=== PATIENT | female | born 1930 | race Caucasian/White ===

== ENCOUNTER 2016-11-14 15:45 | Emergency (ER) | payer MEDICARE, MEDICAID ==
[~2016-11-14 15:45] MED LIST: ACETAMINOPHEN PO; CIPR500T94 PO; LISI-334 PO; METO10TA81 PO; OMEP20CA9 PO; SOLI10TA2 PO; SUCR1TAB35 PO; TRAM1TAB4 PO; TRAMADOL HCL PO
[2016-11-14] MEDS ORDERED: IV NORMAL SALINE 1,000ML 1,000 ML IV ONE (16:00)
[2016-11-14 16:21] LABS: HEMATOCRIT 42.2 % (36.0-47.0); HEMOGLOBIN 13.8 g/dL (12.0-15.5); RED BLOOD COUNT 4.93 x10^6/uL (3.50-5.40); RED CELL DISTRIBUTION WIDTH 13.7 % (11.5-14.5)
[2016-11-14 16:30] LABS: CALCIUM 8.8 mg/dL (8.5-10.1); CREATININE 0.7 mg/dL (0.6-1.0); GFR 79.7; POTASSIUM 4.2 mmol/L (3.5-5.1)
--- NOTE | 2016-11-14 18:12 | PHYS DOC ---
Past History Past Medical History: Hypertension, Other Past Surgical History: , Hysterectomy Alcohol Use: None Drug Use: None Adult General Chief Complaint Chief Complaint: MECHANICAL FALL HPI HPI Patient is a 86 year old F who presents with a fall. She fell about 3 hours prior to arrival while working in her garden. The fall was from standing height onto grass landing on her left side. The majority of her pain is constant dull and located in her left ribs as well as her left hip. Her pain is exacerbated by movement and palpation and alleviated by rest. She does feel that she can breath well. She was able to walk with some assistance. She has a walker at home however usually she is able to get around without it. Review of Systems Review of Systems Constitutional: Denies fever or chills [] Eyes: Denies change in visual acuity, redness, or eye pain [] HENT: Denies nasal congestion or sore throat [] Respiratory: Denies cough or shortness of breath [] Cardiovascular: No additional information not addressed in HPI [] GI: Denies abdominal pain, nausea, vomiting, bloody stools or diarrhea [] : Denies dysuria or hematuria [] Musculoskeletal: Negative except history of present illness Integument: Denies rash or skin lesions [] Neurologic: Denies headache, focal weakness or sensory changes [] Endocrine: Denies polyuria or polydipsia [] Family History Family History Noncontributory Current Medications Current Medications Current Medications Medications (Trade) Dose Ordered Sig/Stas Start Time Stop Time Status Last Admin Dose Admin Sodium Chloride 1,000 ml @ 1,000 mls/hr 1X ONCE 11/14/16 16:00 11/14/16 16:59 DC 11/14/16 16:30 1,000 MLS/HR Allergies Allergies Allergies Coded Allergies Type Severity Reaction Last Updated Verified No Known Drug Allergies 07/01/14 No Physical Exam Physical Exam Constitutional: Well developed, well nourished, no acute distress, non-toxic appearance. [] HENT: Normocephalic, atraumatic, bilateral external ears normal, oropharynx moist, no oral exudates, Eyes: PERRLA, EOMI, conjunctiva normal, no discharge. [] Neck: Normal range of motion, no tenderness, supple, no stridor. [] Cardiovascular:Heart rate regular rhythm, Lungs & Thorax: Bilateral breath sounds clear to auscultation left lateral rib pain to palpation Abdomen: Bowel sounds normal, soft, no tenderness, no masses, no pulsatile masses. [] Skin: Warm, dry, no erythema, no rash. [] Back: No tenderness, no CVA tenderness. [] Extremities: no cyanosis, no clubbing, ROM intact, no edema. Mild tenderness to palpation on the lateral left hip Neurologic: Alert and oriented X 3, normal motor function, normal sensory function, no focal deficits noted. [] Psychologic: Affect normal, judgement normal, mood normal. [] Current Patient Data Vital Signs Vital Signs Date Time Temp Pulse Resp B/P (MAP) Pulse Ox O2 Delivery O2 Flow Rate FiO2 11/14/16 15:45 98.3 103 16 97 Room Air Lab Results Laboratory Tests Test 11/14/16 16:00 White Blood Count 12.0 x10^3/uL (4.0-11.0) H Red Blood Count 4.93 x10^6/uL (3.50-5.40) Hemoglobin 13.8 g/dL (12.0-15.5) Hematocrit 42.2 % (36.0-47.0) Mean Corpuscular Volume 86 fL (79-100) Mean Corpuscular Hemoglobin 28 pg (25-35) Mean Corpuscular Hemoglobin Concent 33 g/dL (31-37) Red Cell Distribution Width 13.7 % (11.5-14.5) Platelet Count 269 x10^3/uL (140-400) Sodium Level 136 mmol/L (136-145) Potassium Level 4.2 mmol/L (3.5-5.1) Chloride Level 101 mmol/L (98-107) Carbon Dioxide Level 29 mmol/L (21-32) Anion Gap 6 (6-14) Blood Urea Nitrogen 14 mg/dL (7-20) Creatinine 0.7 mg/dL (0.6-1.0) Estimated GFR (Cockcroft-Gault) 79.7 Glucose Level 109 mg/dL (70-99) H Calcium Level 8.8 mg/dL (8.5-10.1) Creatine Kinase 50 U/L (26-192) EKG EKG [] Radiology/Procedures Radiology/Procedures Radiology normal Course & Med Decision Making Course & Med Decision Making Pertinent Labs and Imaging studies reviewed. (See chart for details) [] Dragon Disclaimer Dragon Disclaimer This chart was dictated in whole or in part using Voice Recognition software in a busy, high-work load, and often noisy Emergency Department environment. It may contain unintended and wholly unrecognized errors or omissions. Departure Departure: Impression: Primary Impression: Rib contusion Disposition: HOME, SELF-CARE Condition: STABLE Referrals: MONCHO FOSTER MD (PCP) Patient Instructions: Rib Contusion Additional Instructions: Reji was seen in the ED after a fall. No emergency medical condition was found on history or physical exam. She did have normal labs and imaging. She was found to have a bruised rib and was encouraged to have regular deep breathing. She was given an incentive spirometer. She was advised to use lidocaine patches for pain and was given a prescription for muscle relaxers. Home health was set up for physical therapy and occupational therapy. She was advised to follow-up with her primary care doctor in the next 3-5 days Problem Qualifiers Primary Impression: Rib contusion Encounter type: initial encounter Laterality: left Qualified Codes: S20.212A - Contusion of left front wall of thorax, initial encounter MONCHO BARKSDALE MD Nov 14, 2016 18:12
[2016-11-14 18:15] VITALS: BP 157/89
--- NOTE | 2016-11-15 12:30 | RAD ---
Left rib series 11/14/2016 Clinical history: Fall with left rib pain. Two AP and oblique digital radiographs of the left ribs were obtained. The left lung is clear. No left-sided pneumothorax is seen. There is diffuse osteopenia the visualized bony structures. No left-sided rib fracture is seen. Impression: No left-sided rib fracture is seen.
== END 2016-11-14 18:30 | disposition home or self-care (01) ==
LOC: ER 15:45
DX: S20.212A Contusion of left front wall of thorax, initial encounter (principal); M25.552 Pain in left hip; I10 Essential (primary) hypertension; W19.XXXA Unspecified fall, initial encounter; Y93.89 Activity, other specified; Y99.8 Other external cause status; Y92.89 Other specified places as the place of occurrence of the external cause
CPT/HCPCS: 36415; 71100; 80048; 82550; 85027; 96360; 99285-25; J7030

== ENCOUNTER → 2017-04-12 | Outpatient (CLI) | payer MEDICARE, MEDICAID ==
--- NOTE | 2017-04-12 13:36 | RAD ---
Indication: Microscopic hematuria Technique: CT abdomen and pelvis without IV contrast with multiplanar reformats. Comparison: None Findings: Limited evaluation of solid abdominal organs due to lack of IV contrast. Heart is normal in size. No pericardial or pleural effusion. Clear lung bases. Noncontrast appearance of the liver, spleen, pancreas, adrenals is within normal limits. Gallstone is noted. No pericholecystic fluid. 2.0 cm low attenuating lesion in the right kidney demonstrating Hounsfield units compatible with simple cyst. 1.3 cm similar appearing cyst is seen in the left kidney. No nephrolithiasis. Multiple dilated and lobulated low attenuating lesions in the left renal pelvis. No perinephric fluid collection. No retroperitoneal or pelvic adenopathy. No bowel obstruction. Sigmoid diverticulosis. Small sliding hiatal hernia. Uterus likely surgically absent. No solid adnexal lesions. Bladder show no radiopaque stones. Subacute fracture of the inferior left pubic ramus with evidence of callus formation. No suspicious bony lesion. Multilevel degenerative disc disease in the lumbar spine with facet arthropathy. Diffuse atherosclerotic disease of the abdominal aorta. Impression: Limited study due to lack of IV contrast. 1. No nephrolithiasis. Multiple dilated saclike structures in the left renal pelvis most likely parapelvic cysts, less likely hydronephrosis. Nonemergent CT urogram or MRI may be performed for additional evaluation. 2. Sigmoid diverticulosis without diverticulitis. 3. Cholelithiasis without imaging evidence of acute cholecystitis. PQRS Compliance Statement: One or more of the following individualized dose reduction techniques were utilized for this examination: 1. Automated exposure control 2. Adjustment of the mA and/or kV according to patient size 3. Use of iterative reconstruction technique
== END | disposition home or self-care (01) ==
LOC: CT 12:40
PROVIDERS: ATTEND Nurse Practitioner Adult Health
DX: K57.30 Diverticulosis of large intestine without perforation or abscess without bleeding (principal); K80.20 Calculus of gallbladder without cholecystitis without obstruction; K44.9 Diaphragmatic hernia without obstruction or gangrene
CPT/HCPCS: 74176

== ENCOUNTER → 2017-05-21 | Outpatient (CLI) | payer MEDICARE, MEDICAID ==
[~2017-05-21] MED LIST changes: +IOHEXOL 300 MG/ML 75 ML VIAL. IV ONE
[2017-05-21 12:59] LABS: CREATININE 0.7 mg/dL (0.6-1.0); GFR 79.5
--- NOTE | 2017-05-21 15:47 | RAD ---
CT abdomen and pelvis without and with contrast 05/21/2017 Clinical indication: Dilated left renal pelvic cystic structures. Comparison: CT abdomen and pelvis 04/12/2017 Technique: Multiple CT images of the abdomen and pelvis were obtained without and following the intravenous administration of 75 mL Omnipaque 300. PQRS Compliance Statement: One or more of the following individualized dose reduction techniques were utilized for this examination: 1. Automated exposure control 2. Adjustment of the mA and/or kV according to patient size 3. Use of iterative reconstruction technique Findings: Heart size is normal. Minor pleural parenchymal scarring in the visualized lung bases. Liver, spleen, adrenal glands and pancreas are unremarkable. Cholelithiasis in a nondilated gallbladder. No intra or extra hepatic biliary ductal dilatation. There is a right extrarenal pelvis with mild urothelial thickening associated with the right renal pelvis with short segment ureteral thickening just distal to the UVJ as seen on series 10/image 241 and series 9/image 44. No domonique right hydronephrosis. There is a simple cyst in the interpolar right kidney measuring 1.1 cm series 5/image 44. Left kidney present without hydronephrosis or nephrolithiasis. There are multiple left renal sinus cysts. There is a simple interpolar left cortical cyst measuring 1.1 cm. No suspicious solid renal mass. There is adequate distention of the left ureter to the UVJ without evidence of suspicious intraluminal filling defect. Abdominal aorta is normal in caliber with moderate calcified atheromatous disease. No retroperitoneal or mesenteric lymphadenopathy. There is a small sliding-type hilar hernia. Small and large bowel loops are normal in caliber without obstruction. Moderate sigmoid diverticulosis without diverticulitis. No abdominal free fluid. Mildly distended and partially opacified urinary bladder is unremarkable. Prior hysterectomy with the vaginal cuff unremarkable. No iliac or inguinal lymphadenopathy. No pelvic free fluid. There is a small fat-containing umbilical hernia. Left convexity lumbar scoliosis and multilevel spondylosis. Stable healed left inferior pelvic ramus fracture. Impression: 1. Right renal pelvis urothelial thickening with a short segment of more focal thickening at the right UPJ with right pelviectasis. Findings may be related to urothelial carcinoma, or benign stenosis such as congenital UPJ related. Urology consultation is recommended and consideration for ureteroscopy. 2. Left renal sinus cysts. 3. No nephrolithiasis. 4. Cholelithiasis.
== END | disposition home or self-care (01) ==
LOC: CT 12:23
PROVIDERS: ATTEND Nurse Practitioner Adult Health
DX: N28.1 Cyst of kidney, acquired (principal); K80.20 Calculus of gallbladder without cholecystitis without obstruction; N39.0 Urinary tract infection, site not specified; K57.30 Diverticulosis of large intestine without perforation or abscess without bleeding; K42.9 Umbilical hernia without obstruction or gangrene; J98.4 Other disorders of lung; M41.86 Other forms of scoliosis, lumbar region; M47.896 Other spondylosis, lumbar region; S32.592D Other specified fracture of left pubis, subsequent encounter for fracture with routine healing; R30.0 Dysuria; Z90.710 Acquired absence of both cervix and uterus; X58.XXXD Exposure to other specified factors, subsequent encounter
CPT/HCPCS: 36415; 74178; 82565; Q9967

== ENCOUNTER 2017-12-17 13:59 | Emergency (ER) | payer MEDICARE, MEDICAID ==
[~2017-12-17] VITALS: Ht 152.4 cm; Wt 65.8 kg
[~2017-12-17 13:59] MED LIST changes: -IOHEXOL 300 MG/ML 75 ML VIAL. IV ONE
[2017-12-17 14:59] LABS: BASO % 0 % (0-3); EOS % 0 % (0-3); HEMATOCRIT 41.7 % (36.0-47.0); HEMOGLOBIN 14.2 g/dL (12.0-15.5); LYMPH # 1.2 x10^3/uL (1.0-4.8); LYMPH % 14 % (24-48); MEAN CORPUSCULAR HEMOGLOBIN 29 pg (25-35); MEAN CORPUSCULAR HGB CONC 34 g/dL (31-37); MEAN CORPUSCULAR VOLUME 85 fL (79-100); MONO # 0.4 x10^3/uL (0.0-1.1); MONO % 5 % (0-9); NEUT # 7.2 x10^3uL (1.8-7.7); NEUT % 81 % (31-73); PLATELET COUNT 285 x10^3/uL (140-400); RED BLOOD COUNT 4.91 x10^6/uL (3.50-5.40); RED CELL DISTRIBUTION WIDTH 13.7 % (11.5-14.5); WHITE BLOOD COUNT 8.9 x10^3/uL (4.0-11.0)
[2017-12-17] MEDS ORDERED: ONDANSETRON PF 4 MG/2 ML VIAL. IV ONE (15:00)
[2017-12-17] MEDS ORDERED: IV NORMAL SALINE 500ML 500 ML IV ONE (15:00)
--- NOTE | 2017-12-17 15:01 | EKG ---
[address] [address] Test Date: 2017-12-17 Test Time: 14:57:29 Pat Name: ELADIO LARA Department: Room: Gender: F Nozzleman: : 1930 Requested By: ROSS SANDHU Order Number: [id number] Reading MD: Kev Enciso Measurements Intervals [place] Rate: 80 P: 7 NC: 200 QRS: 0 QRSD: 78 T: 13 QT: 386 QTc: 449 Interpretive Statements SINUS RHYTHM LEFTWARD AXIS Electronically Signed On 12-20-2017 11:07:58 CDT by Kev Enciso
[2017-12-17 15:37] LABS: ALBUMIN 3.6 g/dL (3.4-5.0); ALBUMIN/GLOBULIN RATIO 1.1 (1.0-1.7); CALCIUM 8.9 mg/dL (8.5-10.1); CREATININE 0.6 mg/dL (0.6-1.0); TOTAL BILIRUBIN 0.2 mg/dL (0.2-1.0); TOTAL PROTEIN 6.9 g/dL (6.4-8.2)
[2017-12-17] MEDS ORDERED: CONTRAST GIVEN MC PRN (16:00)
[2017-12-17] MEDS ORDERED: IOHEXOL 300 MG/ML 75 ML VIAL. IV ONE (16:00)
[2017-12-17 16:23] LABS: BACTERIA,URINE MANY /HPF (0-FEW); BILIRUBIN,URINE NEG (NEG); CLARITY,URINE CLOUDY; COLOR,URINE YELLOW; GLUCOSE,URINE NEG (NEG); NITRITE,URINE POS (NEG); SQUAMOUS EPITHELIAL CELL,UR OCC /LPF; UROBILINOGEN,URINE 0.2 mg/dL (0.2 mg/dL)
--- NOTE | 2017-12-17 16:23 | RAD ---
Examination: Ultrasound abdomen limited HISTORY: History of right upper quadrant tenderness, nausea, vomiting COMPARISON: None available FINDINGS: The pancreas is not well-visualized due to bowel gas. Moderate significantly distended gallbladder. There is a 1.5 cm echogenicity identified in the gallbladder probably gallstones. One of the gallstones may be immobile in the neck of the gallbladder. The bile duct is not well-visualized. The liver length measures 13.0 cm. The right kidney measures 10 cm in length. Cystic structures identified in the right kidney with measuring up to 1 cm probably cysts. IMPRESSION: 1. Significantly distended gallbladder with gallstones within. One of the gallstones probably stuck within the neck of the gallbladder. 2. Right renal cysts. Electronically signed by: Cristiano Dodge MD (12/17/2017 4:20 PM) [id number]
[2017-12-17 16:24] LABS: AMORPHOUS SEDIMENT,UR PRESENT /HPF
--- NOTE | 2017-12-17 16:34 | PHYS DOC ---
Past History Past Medical History: Hypertension Past Surgical History: Hysterectomy Alcohol Use: None Drug Use: None Adult General Chief Complaint Chief Complaint: ABDOMINAL PAIN HPI HPI Patient is a 87 year old female who presents with complaining of abdominal pain and nausea and vomiting. Patient complaining of upper abdominal pain since this morning as a sharp pain without radiation and 3 episodes of vomiting and constant nausea. Patient denies urinary symptom, chest pain, shortness of breath , diarrhea, constipation, history of abdominal pain. She rated her pain 10 over 10 and complaining of anorexia. Patient was not able to take her blood pressure medication today. Review of Systems Review of Systems Constitutional: Denies fever or chills [] Eyes: Denies change in visual acuity, redness, or eye pain [] HENT: Denies nasal congestion or sore throat [] Respiratory: Denies cough or shortness of breath [] Cardiovascular: No additional information not addressed in HPI [] GI: Reports abdominal pain, nausea, vomiting, denies bloody stools or diarrhea [ ] : Denies dysuria or hematuria [] Musculoskeletal: Denies back pain or joint pain [] Integument: Denies rash or skin lesions [] Neurologic: Denies headache, focal weakness or sensory changes [] Endocrine: Denies polyuria or polydipsia [] All other systems were reviewed and found to be within normal limits, except as documented in this note. Current Medications Current Medications Current Medications Medications (Trade) Dose Ordered Sig/[facility] Start Time Stop Time Status Last Admin Dose Admin Fentanyl Citrate (Fentanyl 2ml Vial) 25 mcg 1X ONCE 12/17/17 16:00 12/17/17 16:01 DC 12/17/17 15:44 25 MCG Info (Do NOT chart on this entry -- for MONITORING) 1 each PRN DAILY PRN 12/17/17 16:00 12/19/17 15:59 Iohexol (Omnipaque 300 Mg/ml) 75 ml 1X ONCE 12/17/17 16:00 12/17/17 16:01 DC 12/17/17 16:11 75 ML Ondansetron HCl (Zofran) 4 mg 1X ONCE 12/17/17 15:00 12/17/17 15:01 DC 12/17/17 14:51 4 MG Sodium Chloride 500 ml @ 0 mls/hr 1X ONCE 12/17/17 15:00 12/17/17 15:01 DC 12/17/17 14:53 500 MLS/HR Allergies Allergies Allergies Coded Allergies Type Severity Reaction Last Updated Verified No Known Drug Allergies 12/17/17 No Physical Exam Physical Exam Constitutional: Well nourished, moderate distress, non-toxic appearance. [] HENT: Normocephalic, atraumatic, oropharynx moist, no oral exudates, nose normal. [] Eyes: PERRLA, EOMI, conjunctiva normal, no discharge. [] Neck: Normal range of motion, no tenderness, supple, no stridor. [] Cardiovascular:Heart rate regular rhythm, no murmur [] Lungs & Thorax: Bilateral breath sounds clear to auscultation [] Abdomen: Bowel sounds normal, soft, right upper quadrant on tenderness with positive Jameson's sign, no masses, no pulsatile masses. [] Skin: Warm, dry, no erythema, no rash. [] Back: No tenderness, no CVA tenderness. [] Extremities: No tenderness, no cyanosis, no clubbing, ROM intact, no edema. [] Neurologic: Alert and oriented X 3, normal motor function, normal sensory function, no focal deficits noted. [] Psychologic: Affect normal, mood normal. [] Current Patient Data Vital Signs Vital Signs Date Time Temp Pulse Resp B/P (MAP) Pulse Ox O2 Delivery O2 Flow Rate FiO2 12/17/17 15:44 18 Room Air 12/17/17 15:24 84 155/63 (93) 97 12/17/17 14:22 96.9 Lab Results Laboratory Tests Test 12/17/17 14:39 12/17/17 15:10 12/17/17 15:53 White Blood Count 8.9 x10^3/uL (4.0-11.0) Red Blood Count 4.91 x10^6/uL (3.50-5.40) Hemoglobin 14.2 g/dL (12.0-15.5) Hematocrit 41.7 % (36.0-47.0) Mean Corpuscular Volume 85 fL (79-100) Mean Corpuscular Hemoglobin 29 pg (25-35) Mean Corpuscular Hemoglobin Concent 34 g/dL (31-37) Red Cell Distribution Width 13.7 % (11.5-14.5) Platelet Count 285 x10^3/uL (140-400) Neutrophils (%) (Auto) 81 % (31-73) H Lymphocytes (%) (Auto) 14 % (24-48) L Monocytes (%) (Auto) 5 % (0-9) Eosinophils (%) (Auto) 0 % (0-3) Basophils (%) (Auto) 0 % (0-3) Neutrophils # (Auto) 7.2 x10^3uL (1.8-7.7) Lymphocytes # (Auto) 1.2 x10^3/uL (1.0-4.8) Monocytes # (Auto) 0.4 x10^3/uL (0.0-1.1) Eosinophils # (Auto) 0.0 x10^3/uL (0.0-0.7) Basophils # (Auto) 0.0 x10^3/uL (0.0-0.2) Sodium Level 133 mmol/L (136-145) L Potassium Level 4.0 mmol/L (3.5-5.1) Chloride Level 97 mmol/L (98-107) L Carbon Dioxide Level 26 mmol/L (21-32) Anion Gap 10 (6-14) Blood Urea Nitrogen 18 mg/dL (7-20) Creatinine 0.6 mg/dL (0.6-1.0) Estimated GFR (Cockcroft-Gault) 95.0 BUN/Creatinine Ratio 30 (6-20) H Glucose Level 148 mg/dL (70-99) H Calcium Level 8.9 mg/dL (8.5-10.1) Total Bilirubin 0.2 mg/dL (0.2-1.0) Aspartate Amino Transferase (AST) 15 U/L (15-37) Alanine Aminotransferase (ALT) 21 U/L (14-59) Alkaline Phosphatase 75 U/L (46-116) Troponin I Quantitative < 0.017 ng/mL (0-0.055) Total Protein 6.9 g/dL (6.4-8.2) Albumin 3.6 g/dL (3.4-5.0) Albumin/Globulin Ratio 1.1 (1.0-1.7) Lipase 90 U/L (73-393) Urine Collection Type Unknown Urine Color Yellow Urine Clarity Cloudy Urine pH 7.0 Urine Specific [place] 1.015 Urine Protein Neg (NEG-TRACE) Urine Glucose (UA) Neg mg/dL (NEG) Urine Ketones (Stick) 40 mg/dL (NEG) Urine Blood Trace (NEG) Urine Nitrite Pos (NEG) Urine Bilirubin Neg (NEG) Urine Urobilinogen Dipstick 0.2 mg/dL (0.2 mg/dL) Urine Leukocyte Esterase Small (NEG) Urine RBC 3-5 /HPF (0-2) Urine WBC 11-20 /HPF (0-4) Urine Squamous Epithelial Cells Occ /LPF Urine Transitional Epithelial Cells Few /LPF Urine Amorphous Sediment Present /HPF Urine Bacteria Many /HPF (0-FEW) EKG EKG Age interpreted by me. EKG at 1 1457 showed normal sinus rhythm at rate of 80, leftward axis, no acute ST and T-wave abnormalities Radiology/Procedures Radiology/Procedures [address] [address] IMAGING REPORT Signed PATIENT: ELADIO LARA ACCOUNT: [id number] : 1930 LOCATION: ER AGE: 87 SEX: F EXAM STATUS: REG ER ORD. PHYSICIAN: ROSS SANDHU MD REASON: right upper quadrant tenderness; nausea; vomitting PROCEDURE: ABDOMEN LTD Examination: Ultrasound abdomen limited HISTORY: History of right upper quadrant tenderness, nausea, vomiting COMPARISON: None available FINDINGS: The pancreas is not well-visualized due to bowel gas. Moderate significantly distended gallbladder. There is a 1.5 cm echogenicity identified in the gallbladder probably gallstones. One of the gallstones may be immobile in the neck of the gallbladder. The bile duct is not well-visualized. The liver length measures 13.0 cm. The right kidney measures 10 cm in length. Cystic structures identified in the right kidney with measuring up to 1 cm probably cysts. IMPRESSION: 1. Significantly distended gallbladder with gallstones within. One of the gallstones probably stuck within the neck of the gallbladder. 2. Right renal cysts. Electronically signed by: Cristiano Dodge MD (12/17/2017 4:20 PM) [id number] DICTATED AND SIGNED BY: CRSITIANO DODGE MD DATE: 12/17/17 1617 CC: MONCHO FOSTER MD; ROSS SANDHU MD ~ [address] [address] IMAGING REPORT Signed PATIENT: ELADIO LARA ACCOUNT: [id number] : 1930 LOCATION: ER AGE: 87 SEX: F EXAM STATUS: REG ER ORD. PHYSICIAN: ROSS SANDHU MD REASON: abdominal pain PROCEDURE: CT ABD PELV W/ IV CONTRST ONLY Examination: CT of the abdomen pelvis with IV contrast HISTORY: History of right upper quadrant abdominal pain COMPARISON: 05/21/2017 TECHNIQUE: Axial CT images of the abdomen pelvis were performed with IV contrast. Coronal and sagittal reformats are performed Exposure: One or more of the following individualized dose reduction techniques were utilized for this examination: 1. Automated exposure control 2. Adjustment of the mA and/or kV according to patient size 3. Use of iterative reconstruction technique FINDINGS: Minimal bibasilar lung atelectasis. No evidence of free air identified in the abdomen. The visualized liver demonstrates a minimal prominent intrahepatic bile ducts. The gallbladder is moderately distended with gallstones within the gallbladder. The common bile duct is mildly prominent. The visualized pancreas grossly appears unremarkable. The stomach is minimally distended. The small bowel is nondilated. Feces and gas noted throughout the colon. Multiple sigmoid colon diverticulosis. Urinary bladder is mildly distended. The bilateral kidneys enhance symmetrically. Multiple consistencies is identified in the bilateral kidneys. Left renal parapelvic cysts identified similar to prior exam. Severe aortic atherosclerosis. Moderate to severe degenerative changes lumbar spine. Mild prominent appearing right breast partially visualized. IMPRESSION: 1. Moderately distended gallbladder with gallstones within. 2. Bilateral renal cysts. Parapelvic left renal cyst similar to prior exam. 3. Multiple sigmoid colon diverticulosis. Electronically signed by: Cristiano Dodge MD (12/17/2017 4:32 PM) [id number] DICTATED AND SIGNED BY: CRISTIANO DODGE MD DATE: 12/17/17 1626 CC: MONCHO FOSTER MD; ROSS SANDHU MD ~ Course & Med Decision Making Course & Med Decision Making Pertinent Labs and Imaging studies reviewed. (See chart for details) Evaluation of patient in ER showed 87-year-old female patient with history of hypertension complaining of constant upper abdominal pain and episodes of nausea and vomiting. Patient had active vomiting while she was in ER. Patient had positive Jameson sign. CBC and CMP was unremarkable. Gallbladder ultrasound showed a large stone in the neck of gallbladder with distended gallbladder. Because of the distended gallbladder plan to transfer patient to [facility]. On-call surgeon Dr. Mcfarland was informed at 1632 and recommended to start Zosyn. Hospitalist at [facility] Dr. Cancino accepted admission at 1628. Patient primary care physician Dr. Foster informed at 1639 was agreed with plan of care. Patient required several doses of fentanyl while she was in ER. Dragon Disclaimer Dragon Disclaimer This electronic medical record was generated, in whole or in part, using a voice recognition dictation system. Departure Departure: Impression: Primary Impression: Acute cholecystitis Additional Impressions: Nausea and vomiting Urinary tract infection Cholelithiasis Disposition: 02 XFER SHT-TRM HOSP ([facility] at 1633) Condition: IMPROVED Referrals: MONCHO FOSTER MD (PCP) Problem Qualifiers ROSS SANDHU MD Dec 17, 2017 16:34
[2017-12-17] MEDS ORDERED: PIPERACILLIN/TAZOBACTAM 3.375 GM VIAL IV ONE (17:00)
[2017-12-17] MEDS ORDERED: IV NORMAL SALINE 50ML 50 ML ONE (17:00)
[2017-12-17] MEDS ORDERED: PIPERACILLIN/TAZOBACTAM 3.375 GM in IV NORMAL SALINE 50ML 50 ML IV ONE (17:15)
[2017-12-17] MEDS ORDERED: KETOROLAC 30 MG/ML VIAL. ONE (17:52)
[2017-12-17] MEDS ORDERED: KETOROLAC 30 MG/ML VIAL. IV ONE (18:15)
[2017-12-17 19:09] VITALS: BP 177/65
[2017-12-17] MEDS ORDERED: MORPHINE SULFATE 10 MG/ML SYRINGE. ONE (20:33)
[2017-12-17] MEDS ORDERED: MORPHINE SULFATE 10 MG/ML SYRINGE. SQ ONE (21:00)
== END 2017-12-17 21:05 | disposition short-term general hospital (02) ==
LOC: ER 13:59
DX: K80.10 Calculus of gallbladder with chronic cholecystitis without obstruction (principal); R11.2 Nausea with vomiting, unspecified; N39.0 Urinary tract infection, site not specified; K82.8 Other specified diseases of gallbladder; N28.1 Cyst of kidney, acquired; K57.30 Diverticulosis of large intestine without perforation or abscess without bleeding; I10 Essential (primary) hypertension; Z90.710 Acquired absence of both cervix and uterus
CPT/HCPCS: 36415; 74177; 76705; 80053; 81001; 83690; 84484; 85025; 87086; 93005; 96361; 96365; 96372; 96375; 96376; 99285; J1885; J2270; J2405; J2543; J3010; J7040; Q9967

== ENCOUNTER 2021-07-06 20:28 | Emergency (ER) | payer OTHER, MEDICAID ==
[~2021-07-06] VITALS: Ht 152.4 cm; Wt 61.8 kg
[~2021-07-06 20:28] MED LIST changes: -LISI-334 PO; +LISI20TA18 PO; +OMEP20CA16 PO; -OMEP20CA9 PO
[2021-07-06 21:41] LABS: BASO % 1 % (0-3); EOS # 0.1 x10^3/uL (0.0-0.7); EOS % 2 % (0-3); HEMATOCRIT 38.6 % (36.0-47.0); HEMOGLOBIN 12.8 g/dL (12.0-15.5); LYMPH # 2.4 x10^3/uL (1.0-4.8); LYMPH % 35 % (24-48); MEAN CORPUSCULAR HEMOGLOBIN 29 pg (25-35); MEAN CORPUSCULAR HGB CONC 33 g/dL (31-37); MEAN CORPUSCULAR VOLUME 87 fL (79-100); MONO # 0.9 x10^3/uL (0.0-1.1); MONO % 14 % (0-9); NEUT # 3.4 x10^3uL (1.8-7.7); NEUT % 49 % (31-73); PLATELET COUNT 236 x10^3/uL (140-400); RED BLOOD COUNT 4.46 x10^6/uL (3.50-5.40); WHITE BLOOD COUNT 6.9 x10^3/uL (4.0-11.0)
--- NOTE | 2021-07-06 21:45 | PHYS DOC ---
Past History Past Medical History: Arthritis, Hypertension Past Surgical History: Cholecystectomy, Hysterectomy Alcohol Use: None Drug Use: None General Adult EDM: Chief Complaint: BLOODY STOOL HPI: HPI: ".. I ve had very black stools.. It been a couple days.. now.. " Patient is a 89 year old female who presents with above hxcand complaints of black stools. Patient did start a new [id number] supplement afterlife all. Patient denies any previous history of GI bleed. No recent travel. No history of trauma. Denies immunosuppression. Pt. follows with Dr. Pyle. Patient does have past medical history of dementia,, scoliosis, kyphosis, arthritis, chronic UTIs, hydronephrosis, vaginal prolapse, hysterectomy, C- sections, skin cancer reconstruction and pyelonephritis. Patient normally follows with Dr. Pyle. Review of Systems: Review of Systems: Constitutional: Denies fever or chills Eyes: Denies change in visual acuity HENT: Denies nasal congestion or sore throat Respiratory: Denies cough or shortness of breath Cardiovascular: Denies chest pain or edema GI: Denies abdominal pain, nausea, vomiting, bloody stools. History of dark stools : Denies dysuria Musculoskeletal: Denies back pain or joint pain Integument: Denies rash Neurologic: Denies headache, focal weakness or sensory changes Endocrine: Denies polyuria or polydipsia Lymphatic: Denies swollen glands Psychiatric: Denies depression or anxiety Family History: Family History: Noncontributory to presentation-there is family history of mother with arthritis, father had cancer, sister had cancer and parental grandmother had so me form of cancer Current Medications: Current Meds: See nursing for home meds Allergies: Allergies: Allergies Coded Allergies Type Severity Reaction Last Updated Verified No Known Drug Allergies 12/17/17 No Physical Exam: PE: Constitutional: no acute distress, non-toxic appearance. [] HENT: Normocephalic, atraumatic, bilateral external ears normal, oropharynx moist, no oral exudates, nose normal. [] Eyes: PERRLA, EOMI, conjunctiva normal, no discharge. Glasses Neck: Normal range of motion, no tenderness, supple, no stridor. [] Cardiovascular:Heart rate regular rhythm, no murmur. PMI to left Lungs & Thorax: Bilateral breath sounds equal apex on auscultation [] Abdomen: Bowel sounds normal, soft, no tenderness, no masses, no pulsatile masses. Old surgery scars. Rectal exam did have some dark stools but not consistent with domonique melena. Skin: Warm, dry, no erythema, no rash. Poor turgor Back: No tenderness, no CVA tenderness. Significant scoliosis and kyphosis Extremities: No tenderness, no cyanosis, no clubbing, ROM intact, no edema. Arthritic changes Neurologic: Alert and oriented X 3, but still appears to have some dementia and memory issues, moves all extremities as directed, has distal sensory,, no focal deficits noted. [] Psychologic: Affect anxious, requesting to be discharged home, mood normal. [] Current Patient Data: Labs: Laboratory Tests Test 07/06/21 21:15 White Blood Count 6.9 x10^3/uL (4.0-11.0) Red Blood Count 4.46 x10^6/uL (3.50-5.40) Hemoglobin 12.8 g/dL (12.0-15.5) Hematocrit 38.6 % (36.0-47.0) Mean Corpuscular Volume 87 fL (79-100) Mean Corpuscular Hemoglobin 29 pg (25-35) Mean Corpuscular Hemoglobin Concent 33 g/dL (31-37) Red Cell Distribution Width 14.0 % (11.5-14.5) Platelet Count 236 x10^3/uL (140-400) Neutrophils (%) (Auto) 49 % (31-73) Lymphocytes (%) (Auto) 35 % (24-48) Monocytes (%) (Auto) 14 % (0-9) H Eosinophils (%) (Auto) 2 % (0-3) Basophils (%) (Auto) 1 % (0-3) Neutrophils # (Auto) 3.4 x10^3uL (1.8-7.7) Lymphocytes # (Auto) 2.4 x10^3/uL (1.0-4.8) Monocytes # (Auto) 0.9 x10^3/uL (0.0-1.1) Eosinophils # (Auto) 0.1 x10^3/uL (0.0-0.7) Basophils # (Auto) 0.0 x10^3/uL (0.0-0.2) Vital Signs: Vital Signs Date Time Temp Pulse Resp B/P (MAP) Pulse Ox O2 Delivery O2 Flow Rate FiO2 07/06/21 20:30 109 24 131/49 (76) 95 Room Air EKG: EKG: [] Radiology/Procedures: Radiology/Procedures: [] Heart Score: C/O Chest Pain: N/A Risk Factors: Risk Factors: DM, Current or recent (<one month) smoker, HTN, HLP, family history of CAD, obesity. Risk Scores: Score 0 - 3: 2.5% MACE over next 6 weeks - Discharge Home Score 4 - 6: 20.3% MACE over next 6 weeks - Admit for Clinical Observation Score 7 - 10: 72.7% MACE over next 6 weeks - Early Invasive Strategies Course & Med Decision Making: Course & Med Decision Making Pertinent Labs and Imaging studies reviewed. (See chart for details) Reviewed with risks benefits of admission versus transfer. Daughter and patient elected to be discharged home. Monitor for further signs of bleeding. If further dark stools , would present to a emergency room that has GI available ability. Stop all food supplements. Take Tylenol for arthritic pain. Take Pepcid 20 mg twice a day for gastritis. Take Keflex 500 mg 3 times a day for UTI. Follow-up with Dr. Pyle. Return if any concerns. Impression: 1. Hx. of Dark Stool-recently started a new foods supplement ( does not appear to be true melena) 2. Urinary tract infection 3. Stable hemoglobin 12.8 4. Arthritis [] Dragon Disclaimer: Dragon Disclaimer: This electronic medical record was generated, in whole or in part, using a voice recognition dictation system. Departure Departure: Referrals: CHACHO PYLE MD (PCP) Scripts Cephalexin (KEFLEX) 500 Mg Capsule 1 CAP PO TID for uti, #30 CAP Prov: SIMIN BAKER MD 07/06/21 Famotidine (PEPCID) 20 Mg Tablet 20 MG PO BID for gastritis for 30 Days, #60 TAB Prov: SIMIN BAKER MD 07/06/21 Dragon Disclaimer This chart was dictated in whole or in part using Voice Recognition software in a busy, high-work load, and often noisy Emergency Department environment. It may contain unintended and wholly unrecognized errors or omissions. Dragon Disclaimer This chart was dictated in whole or in part using Voice Recognition software in a busy, high-work load, and often noisy Emergency Department environment. It may contain unintended and wholly unrecognized errors or omissions. Dragon Disclaimer This chart was dictated in whole or in part using Voice Recognition software in a busy, high-work load, and often noisy Emergency Department environment. It may contain unintended and wholly unrecognized errors or omissions. SIIMN BAKER MD Jul 06, 2021 21:45
[2021-07-06 21:47] LABS: CLARITY,URINE CLOUDY; COLOR,URINE YELLOW; GLUCOSE,URINE NEG (NEG); UROBILINOGEN,URINE 0.2 mg/dL (0.2 mg/dL)
[2021-07-06 21:48] LABS: AMORPHOUS SEDIMENT,UR PRESENT /HPF; BACTERIA,URINE MANY /HPF (0-FEW); NITRITE,URINE POS (NEG); SQUAMOUS EPITHELIAL CELL,UR FEW /LPF; WBC,URINE 20-40 /HPF (0-4)
[2021-07-06 21:52] LABS: CALCIUM 9.5 mg/dL (8.5-10.1); CREATININE 0.7 mg/dL (0.6-1.0); GFR 78.8; POTASSIUM 4.2 mmol/L (3.5-5.1)
[2021-07-06 21:58] LABS: ALBUMIN 3.2 g/dL (3.4-5.0); ALBUMIN/GLOBULIN RATIO 0.8 (1.0-1.7); TOTAL BILIRUBIN 0.2 mg/dL (0.2-1.0); TOTAL PROTEIN 7.1 g/dL (6.4-8.2)
[2021-07-06 22:38] VITALS: BP 162/74
[2021-07-06] MEDS ORDERED: CEPHALEXIN 250 MG CAPSULE PO ONE (22:45)
--- NOTE | 2021-07-06 22:50 | RAD ---
XR ABDOMEN COMP ACUTE INDICATION: discomfort bleeding COMPARISON STUDY: None. FINDINGS: Lungs: Normal lung volume. No pulmonary mass or consolidation. The tracheobronchial tree and hilar st ructures are normal. Pleura: No pleural effusion or pneumothorax. Heart and Mediastinum: The cardiomediastinal silhouette is normal. Tortuous atherosclerotic aorta. Abdomen: Nonobstructive bowel gas pattern. Moderate colonic stool burden. No free air. IMPRESSION: 1. Nonobstructive bowel gas pattern. Moderate colonic stool burden. 2. No focal airspace disease Electronically signed by: Dread Delarosa MD (07/06/2021 10:48 PM) [facility]
[2021-07-06] MEDS ORDERED: MAGNESIUM HYDROXIDE 2,400 MG/30 ML ORAL.SUSP. PO ONE (23:00)
[2021-07-06] MEDS ORDERED: FAMOTIDINE 20 MG/2 ML VIAL IVP ONE ×2 (23:00→23:15)
[2021-07-06] MEDS ORDERED: FAMO-63 PO (23:13)
[2021-07-06] MEDS ORDERED: CEPH500C PO (23:13)
[2021-07-06 23:22] LABS: FECAL OB PT NEGATIVE (NEG)
== END 2021-07-06 23:30 | disposition home or self-care (01) ==
LOC: ER 20:28
DX: N39.0 Urinary tract infection, site not specified (principal); M19.90 Unspecified osteoarthritis, unspecified site; I10 Essential (primary) hypertension; F03.90 Unspecified dementia, unspecified severity, without behavioral disturbance, psychotic disturbance, mood disturbance, and anxiety; Z87.440 Personal history of urinary (tract) infections
CPT/HCPCS: 36415; 74022; 80053; 81001; 82274; 85025; 86850; 86900; 86901; 87077; 87086; 87186; 96374; 99284; J3490